=== PATIENT | male | born 1950 | race Caucasian/White ===

== ENCOUNTER 2020-10-16 07:56 | Outpatient (CLI) | payer BC ==
[2020-10-16 11:48] LABS: Hemoglobin 16.2 g/dL (14.0-18.0); Mean Corpuscular HGB CONC 34.8 G/DL (32.0-36.0); Mean Corpuscular Hemoglobin 29.5 PG (27.0-33.0); Mean Corpuscular Volume 84.9 fl (80.0-100.0); Mean Platelet Volume 10.9 fl (7.4-10.4); Platelet Count 234 10x3/uL (130-400); RBC Distribution Width 12.4 % (11.5-14.5); Red Blood Cell (RBC) Count 5.49 10x6/uL (4.40-5.80); White Blood Cell (WBC) Count 5.6 10x3/uL (4.5-11.0)
[2020-10-16 12:04] LABS: PTT 27.3 sec (22.0-33.0)
[2020-10-17 00:15] LABS: SARS-CoV-2 PCR by NAA Not Detected (NotDetected)
== END 2020-10-16 07:57 | disposition home or self-care (01) ==
LOC: LABBT 07:56
PROVIDERS: ATTEND Neurological Surgery
DX: Z01.812 Encounter for preprocedural laboratory examination (principal); Z20.822 Contact with and (suspected) exposure to COVID-19; M48.061 Spinal stenosis, lumbar region without neurogenic claudication
CPT/HCPCS: 85027; 85610; 85730; 87635; U0003; U0005

== ENCOUNTER 2020-10-21 05:35 | Day surgery (SDC) | payer BC ==
--- NOTE | 2020-10-19 16:39 | HP ---
REASON FOR H AND P: Surgery on 10/21/2020, case #[id number]. HISTORY OF PRESENT ILLNESS: Mr. Banegas is a 70-year-old gentleman with lower back and right leg pain for the past 3 to 5 years. Pain and paresthesias radiating into the bilateral gluteal muscle, lateral thigh, lateral calf and both feet, including all of his toes. Currently works at a local intermediate. Can walk about 20 minutes before he has to sit and rest due to increased pain, weakness and paresthesias. Reports when he goes to store, he could walk farther if he leans over a shopping cart. Finished physical therapy about 3 months ago. Has had spinal epidural injections about 3 years ago which then really helped his symptoms. Denies any bladder or bowel dysfunction. REVIEW OF SYSTEMS: CONSTITUTIONAL: Denies fever or chills. ENT: Denies change in vision or hearing. CARDIAC: Denies chest pain, shortness of breath or diaphoresis. PULMONARY: Denies shortness of breath, cough or hemoptysis. GI: Denies fecal incontinence, abdominal pain, nausea, vomiting, diarrhea, change in stool formation or consistency. : Denies urinary incontinence, trouble with urination, frequency of urination, bloody urine. SKIN: Denies skin rash, bruising, bleeding, skin masses. MUSCULOSKELETAL: As per history of present illness. NEUROLOGICAL: As per history of present illness. PSYCHOLOGICAL: Denies anxiety, depression or behavior changes. PAST MEDICAL HISTORY: High blood pressure. HOSPITALIZATIONS: Latest in 2014 in 2015. FAMILY HISTORY: Father is , diagnosed with diabetes, hypertension and cancer. Mother is , diagnosed with cancer. SOCIAL HISTORY: Nonsmoker. Denies alcohol or illicit drug use. MEDICATIONS: 1. Diovan 320/25 mg. 2. Meloxicam 7.5 mg. 3. Gabapentin 300 mg. 4. Terbinafine 250 mg. 5. Metoprolol 100 mg. ALLERGIES: NKDA PHYSICAL EXAMINATION: VITAL SIGNS: Weight 260, height 6 feet. BMI 35.26. HEENT: Pupils are equal. Extraocular movements are intact. NECK: Soft, supple. No masses are noted. Range of motion is intact and nonpainful. NEUROLOGIC: Awake, alert, and oriented x3. Memory, attention and fund of knowledge are normal. Cranial nerves grossly intact. Gait and station are normal. Motor exam, normal strength in the iliopsoas, quadriceps, hamstrings, anterior tib, EHL, gastroc, and toe flexors. Sensory exam, stocking distribution, sensory loss. Lower extremity exam, stasis color changes in the skin of the lower legs and feet. IMAGING: MRI of the L-spine; moderate L2-3 stenosis; severe L3-4, L4-5 stenosis; lateral recess L5-S1. X-ray of L-spine, flexion-extension is stable. 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 PLAN: 1. Laminectomy, L3-S1. 2. Preop labs, PT/PTT, CBC, COVID-19. 3. Anesthesia clearance. INFORMED CONSENT: We discussed the indications, risks, benefits, alternatives, and expected results from surgery. The risks discussed included, but were not limited to, bleeding, infection, CSF leak, nerve damage, weakness, incontinence, cauda equina injury, arachnoiditis, paralysis, ventilator dependency, wheelchair dependency, loss of vision, cardiopulmonary complications of anesthesia, or . Long-term complications discussed included, but were not limited to spinal instability and future surgery. He understands the risks and is willing to proceed. Job ID: [id number] MTDD
[2020-10-20 12:03] VITALS: BMI 35.2
[2020-10-21] MEDS ORDERED: Ketamine 50 MG/ML (10ML VIAL) ONE (06:31)
[2020-10-21] MEDS ORDERED: Fentanyl 100 MCG/2 ML VIAL ONE ×2 (06:31→07:24)
[2020-10-21] MEDS ORDERED: Bupivacaine PF 0.5% 30 ML VIAL ONE (06:37)
[2020-10-21] MEDS ORDERED: EPINEPHrine 1 MG/ML AMP ONE (06:37)
[2020-10-21] MEDS ORDERED: Thrombin 5000 UNITS/5 ML VIAL ONE (06:37)
[2020-10-21] MEDS ORDERED: Midazolam HCl 2 mg/2 ml Vial ONE (07:44)
[2020-10-21] MEDS ORDERED: Glycopyrrolate 0.2 MG/ML 5 ML SYRINGE ONE (09:49)
[2020-10-21] MEDS ORDERED: PROPOFOL 200 MG/20 ML VIAL ONE (09:49)
[2020-10-21] MEDS ORDERED: Ondansetron PF 4 MG/2 ML Vial ONE (09:49)
[2020-10-21] MEDS ORDERED: Rocuronium Bromide 10 MG/ML (10ML VIAL) ONE (09:49)
[2020-10-21] MEDS ORDERED: Ketorolac Tromethamine 30 MG/ML VIAL ONE (09:49)
[2020-10-21] MEDS ORDERED: Lidocaine 1% PF 5 ML VIAL ONE (09:49)
[2020-10-21] MEDS ORDERED: ePHEDrine 50 MG/ML VIAL ONE (09:49)
--- NOTE | 2020-10-21 09:51 | OP ---
DATE OF PROCEDURE: 10/21/2020 [place] REPRESENTATIVE: Eder Goodson PA-C PREOPERATIVE INDICATION: Treat pain and prevent neurological deterioration. PREOPERATIVE DIAGNOSIS: Severe lumbar stenosis with severe neurogenic claudication. POSTOPERATIVE DIAGNOSIS: Severe lumbar stenosis with severe neurogenic claudication. PROCEDURE PERFORMED: Decompressive laminectomy with medial facetectomy and foraminotomy at L3-L4, L4-L5, L5-S1. PREOP MEDICATIONS: Ancef 2 g IV. DRAIN NUMBER: Zero. DRAIN TYPE: None. DESCRIPTION OF PROCEDURE: The patient was brought to the operating room. General endotracheal anesthesia was induced. The patient was carefully positioned prone with his chest and hips supported by gel-filled chest rolls. A lateral fluoro radiograph was used to plan our incision. The lumbar skin was sterilely prepped and draped. We opened a midline incision with a 10 blade knife and controlled bleeding with bipolar and monopolar cautery. We used monopolar cautery to dissect through subcutaneous tissues to the thoracodorsal fascia. The fascia was incised in the midline and we reflected the paraspinal muscles off the spinous process and lamina of L3, L4, L5 and the top of the sacrum. A self-retaining retractor was placed. A lateral fluoro radiograph confirmed the levels upon which we were operating. We then used an Adson rongeur to remove the spinous processes from L3 to the top of the sacrum. We thinned the lamina as well. Kerrison rongeurs were used to fashion a laminectomy down the midline. In order to decompress the lateral recesses, we had to perform medial facetectomies at L3-L4, L4-L5, L5-S1. We found the traversing nerve roots and follow them each out their respective foramina. We performed foraminotomies over the nerve roots to make sure they could leave the spine without impingement. We irrigated with bacitracin irrigation. We controlled epidural bleeding with gentle bipolar cautery. We waxed the bone edges. We infused local anesthetic in the paraspinal muscles. We irrigated once again with bacitracin irrigation. We treated the wound with vancomycin powder and we closed in anatomical layers. This was a clean case, no contamination. Job ID: [id number]
[2020-10-21] MEDS ORDERED: Tamsulosin HCl 0.4 MG CAP ONE (10:36)
[2020-10-21] MEDS ORDERED: tiZANidine HCl 4 MG TAB ONE (11:00)
== END 2020-10-21 12:25 | disposition home or self-care (01) ==
LOC: SDC 05:35
PROVIDERS: ATTEND Neurological Surgery
PROC: 00NY0ZZ Release Lumbar Spinal Cord, Open Approach (ICD-10-PCS; principal; 2020-10-21)
DX: M48.062 Spinal stenosis, lumbar region with neurogenic claudication (principal); I10 Essential (primary) hypertension; E66.9 Obesity, unspecified; Z68.35 Body mass index [BMI] 35.0-35.9, adult; Z79.899 Other long term (current) drug therapy
CPT/HCPCS: 76000; J0171; J0690; J1885; J2250; J2405; J2704; J3010; J3370; J3490; S0020